=== PATIENT | male | born 1945 | race Caucasian/White ===

== ENCOUNTER → 2018-06-23 11:11 | Outpatient (CLI) | payer MEDICARE, OTHER, SELFPAY ==
--- NOTE | 2018-06-23 11:32 | XR_ITS ---
XR knee RT 3V Ordering Physician: Shwetha Morales Patient Age: 73 years: Male HISTORY: ITS.REASON: PAIN Pain 6 weeks no known injury TECHNIQUE: 3 view right knee. COMPARISON :No right knee study. There is a left knee from 08/26/2015. FINDINGS Joint effusion suprapatella bursa. Osseous structures intact with no fracture evident in the deep knee joint space seems well-maintained on this frontal projection. Minor sharpening the joint margins infiltrate and mild degenerative changes suggest small developing early marginal osteophytes. Tiny marginal osteophytes most notable at the superior and inferior margin of patella. Bones well mineralized. Faint atherosclerotic Calcification of popliteal artery and distal SFA noted. T (the he comparison contralateral left knee shows more evident and slightly more pronounced degenerative changes on a 2016 exam) IMPRESSION: Moderate Joint effusion evident at suprapatella bursa. Osseous structures intact With Only suggestion scant very minor degenerative changes right knee.
== END ==
PROVIDERS: PCP Nurse Practitioner Family; Visit Provider Nurse Practitioner Family
DX: M25.562 Pain in left knee (principal)
CPT/HCPCS: 73562

== ENCOUNTER → 2018-11-12 14:30 | Outpatient (CLI) | payer MEDICARE, OTHER, SELFPAY ==
--- NOTE | 2018-11-12 14:33 | MR_ITS ---
MR knee RT wo con HISTORY: Right knee pain and swelling ITS.REASON: SWELLING OF RIGHT KNEE JOINT ORDERING PHYSICIAN: Shwetha Morales PATIENT AGE: 73 years Comparison: 06/23/2018 TECHNIQUE: Standard multiplanar multiecho sequences are performed without contrast. FINDINGS: The cruciate ligaments appear intact. The collateral ligaments, patellar tendon, and quadriceps tendon are also intact. Horizontal nondisplaced tear involves the nature of the lateral meniscus peripherally. There is some increased T2 signal involving the posterior horn of the medial meniscus. This is diffuse in nature and does not meet strict MRI criteria for a meniscal tear. There are mild tricompartmental osteoarthritic changes. There is some mild thinning of the patellar cartilage. There is a small knee joint effusion. Mild amount of edema is noted around the knee. Focal decreased T1 and increased T2 signal involves the articular and subarticular surface of the medial femoral condyle and medial tibial plateau. These are more suspect for avascular necrosis. Posttraumatic changes with bone marrow edema is an additional consideration there is mild generalized edema of the medial femoral condyle and medial tibial plateau as well. There is some minimal depression of the medial aspect of the medial tibial plateau. At this region there is a small linear area of decreased T2 signal which is of questionable clinical significance and may be due to an area of subchondral cystic change. This felt to be less likely due to a horizontal meniscal tear. IMPRESSION: 1. Nondisplaced horizontal tear involves the anterior horn of the lateral meniscus. 2. Tricompartmental osteoarthritis with knee joint effusion. 3. Abnormal signal intensity involves the medial femoral condyle and medial tibial plateau as described above decreased T1 and increased T2 signal with more focal changes along the subarticular region suspicious for areas of avascular necrosis. Bone marrow edema from trauma would be included in the differential diagnosis.
== END ==
PROVIDERS: PCP Nurse Practitioner Family; Visit Provider Nurse Practitioner Family
DX: M25.461 Effusion, right knee (principal)
CPT/HCPCS: 73721

== ENCOUNTER → 2018-11-28 08:47 | Outpatient (CLI) | payer MEDICARE, OTHER, SELFPAY ==
--- NOTE | 2018-11-28 08:53 | XR_ITS ---
XR knee RT 4V HISTORY: Knee pain ITS.REASON: ap, lateral, sunrise, mooney weightbearing ORDERING PHYSICIAN: Stephanie Gibbons MD PATIENT AGE: 73 years COMPARISON: 06/23/1820 FINDINGS: There are moderate osteoarthritic changes of the medial compartment with loss of joint space and mild osteophyte formation. There is mild osteoarthritis of the patellofemoral joint. A subarticular lucency is noted medially at the tibial plateau at 7 mm with associated small area of calcification medial to this region. Scattered vascular calcification noted. Suprapatellar effusion also suspected. IMPRESSION: 1. Moderate osteoarthritis of the medial compartment with mild osteoarthritis of the patellofemoral joint. 2. Subarticular lucency along the medial aspect of the proximal tibia with some dystrophic calcification at this region. Has the patient had recent surgery with a surgical defect at this region?
== END ==
PROVIDERS: PCP Family Medicine; Visit Provider Orthopaedic Surgery
DX: M25.561 Pain in right knee (principal)
CPT/HCPCS: 73564

== ENCOUNTER → 2019-02-04 16:11 | Outpatient (CLI) | payer MEDICARE, OTHER, SELFPAY ==
--- NOTE | 2019-02-04 16:16 | XR_ITS ---
XR knee RT 4V HISTORY: ITS.REASON: right knee pain ORDERING PHYSICIAN: Stephanie Gibbons MD PATIENT AGE: 73 years COMPARISON: None FINDINGS: There are moderate osteoarthritic changes of the medial compartment. There is a small bony defect involving the subarticular surface of the medial femoral condyle consistent with an osteochondral defect. Sclerosis is present about the defect. There is also small defect involving the medial aspect of the medial tibial plateau measuring 9 mm. There are mild osteoarthritic changes of the patellofemoral joint. Vascular calcifications are also noted. There is mild varus angulation of the tibia. IMPRESSION: 1. Osteoarthritis. 2. Osteochondral defect of the medial femoral condyle. A lucent lesion also involves the proximal tibia medially and could be related to a subchondral cyst or an osteochondral defect.
== END ==
PROVIDERS: PCP Family Medicine; Visit Provider Orthopaedic Surgery
DX: M25.561 Pain in right knee (principal)
CPT/HCPCS: 73564

== ENCOUNTER → 2019-03-06 13:59 | Outpatient (CLI) | payer MEDICARE, OTHER, SELFPAY ==
--- NOTE | 2019-03-06 14:01 | MR_ITS ---
MR cervical spine wo con, MR 3-d myelogram/MRCP HISTORY: RT sided neck pain. Symptoms X2-X3wks. No trauma. ITS.REASON: NECK PAIN ORDERING PHYSICIAN: Shwetha Morales APRN PATIENT AGE: 73 years Comparison: MRI 10-28-16 TECHNIQUE: Standard multiplanar multiecho sequences are performed without contrast. 3-D MIP and myelographic images are also rendered and reviewed FINDINGS: There is normal alignment. The craniocervical junction has an unremarkable appearance. C2-C3: Mild/moderate right-sided foraminal narrowing from facet and uncovertebral hypertrophy not significant change. C3-C4: Minimal bulging disc. C4-C5: Mild concentric bulging disc slightly eccentric to the left along with facet and uncovertebral hypertrophy with mild bilateral foraminal narrowing left greater than right C5-C6: Mild degenerative disc disease with mild bulging disc slightly eccentric toward the left. There is mild bilateral foraminal narrowing similar to the previous exam. There is borderline canal stenosis at this level. No cord impingement. C6-C7: Degenerative disc disease with mild bulging disc. Bilateral foraminal narrowing is present from facet and uncovertebral hypertrophy similar to the previous exam. There is minimal retrolisthesis of C6 of 3 mm. C7-T1: Unremarkable. IMPRESSION: 1. Mild multilevel cervical spondylosis as described above. Mild bulging disc along with facet and uncovertebral hypertrophy noted. PLEASE SEE ABOVE FOR DETAILED DESCRIPTION AT EACH LEVEL. 2. No disc herniation or canal stenosis. There is borderline canal stenosis at C5-C6 without cord impingement. 3. Overall no significant change from the previous exam
== END ==
PROVIDERS: PCP Family Medicine; Visit Provider Nurse Practitioner Family
DX: M54.2 Cervicalgia (principal)
CPT/HCPCS: 72141; 76376

== ENCOUNTER → 2019-05-13 11:54 | Outpatient (CLI) | payer MEDICARE, OTHER, SELFPAY ==
--- NOTE | 2019-05-13 11:59 | XR_ITS ---
PROCEDURE: XR CHEST 2V CLINICAL HISTORY: HTN COMPARISON: No exams were available for comparison FINDINGS: The cardiomediastinal silhouette and pulmonary vascularity are within normal limits. No lobar consolidation or collapse. Slight increased markings left lung base and may be due to vascular crowding atelectasis or an area of fibrosis. No acute bony abnormalities. IMPRESSION: Mild atelectatic or fibrotic change in the left lung base otherwise negative Dictated by: Espinoza Magallanes MD 05/13/2019 13:48 Electronically signed by Espinoza Magallanes MD in [place] 05/13/2019 13:48
== END ==
PROVIDERS: PCP Nurse Practitioner Family; Visit Provider Nurse Practitioner Family
DX: Z01.818 Encounter for other preprocedural examination (principal)
CPT/HCPCS: 71046